=== PATIENT | male | born 2000 | race Caucasian/White ===

== ENCOUNTER 2020-02-28 20:26 | Emergency (ER) | payer BC ==
[2020-02-28] MEDS: Sodium Chloride 0.9% 10 ML Syringe FLUSH PRN ×3 (20:34→21:50)
[2020-02-28] MEDS ORDERED: Aspirin 81 MG Tab.Chew PO STA (20:45)
[2020-02-28] MEDS: Nitroglycerin 0.4 MG Tab.SL SL PRN ×2 (20:47→20:51)
[2020-02-28] MEDS ORDERED: fentaNYL 100 MCG/2 ML SDV IVPUSH STA (21:02)
--- NOTE | 2020-02-28 21:18 | EDM.PDOC ---
ED HPI GENERAL MEDICAL PROBLEM - General Chief Complaint: Chest Pain Stated Complaint: PALPITATIONS Time Seen by Provider: 02/28/20 20:35 Source of Information: Reports: Patient History Limitations: Reports: No Limitations - History of Present Illness INITIAL COMMENTS - FREE TEXT/NARRATIVE: Patient presented to the ED because of palpitations and chest pain which started at about 1930 tonight. It's pounding, sharp, with associated dyspnea. Denies any nausea or vomiting. He had an ablation done several months ago in [facility] due to an atrial flutter. 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 Anterior chest Pain Score (Numeric/FACES): 9 - Related Data Allergies Allergy/AdvReac Type Severity Reaction Status Date / Time No Known Allergies Allergy Verified 02/28/20 20:43 Home Meds: Home Meds Citalopram [Citalopram HBr] 10 mg PO DAILY 02/28/20 [History] Naproxen 500 mg PO BID #15 tablet 02/28/20 [Rx] Past Medical History Cardiovascular History: Reports: Afib, Arrhythmia Respiratory History: Reports: Asthma, Other (See Below) Other Respiratory History: bronchiectasis Gastrointestinal History: Reports: Other (See Below) Other Gastrointestinal History: gluten intolerance Musculoskeletal History: Reports: Fracture Other Musculoskeletal History: hx fx R wrist, Neurological History: Reports: Concussion, Migraines, Vertigo Psychiatric History: Reports: Anxiety, Depression, Suicidal Ideation - Infectious Disease History Infectious Disease History: Reports: Chicken Pox - Past Surgical History HEENT Surgical History: Reports: Oral Surgery Cardiovascular Surgical History: Reports: Cardiac Ablation Respiratory Surgical History: Reports: Other (See Below) Other Respiratory Surgeries/Procedures: lung washing GI Surgical History: Reports: Appendectomy Musculoskeletal Surgical History: Reports: None Social & Family History - Family History Family Medical History: No Pertinent Family History - Tobacco Use Tobacco Use Status *Q: Former Tobacco User Years of Tobacco use: 3 Used Tobacco, but Quit: Yes Month/Year Tobacco Last Used: Dec 2018 - Caffeine Use Caffeine Use: Reports: Soda - Alcohol Use Days Per Week of Alcohol Use: 2 Number of Drinks Per Day: 4 Total Drinks Per Week: 8 - Recreational Drug Use Recreational Drug Use: No ED ROS GENERAL - Review of Systems Review Of Systems: See Below Constitutional: Reports: No Symptoms HEENT: Reports: No Symptoms Respiratory: Reports: Shortness of Breath Cardiovascular: Reports: Chest Pain, Palpitations Endocrine: Reports: No Symptoms GI/Abdominal: Reports: No Symptoms : Reports: No Symptoms Musculoskeletal: Reports: No Symptoms Skin: Reports: No Symptoms Neurological: Reports: No Symptoms Psychiatric: Reports: No Symptoms Hematologic/Lymphatic: Reports: No Symptoms ED EXAM, GENERAL - Physical Exam Exam: See Below Exam Limited By: No Limitations General Appearance: Alert, No Apparent Distress Nose: Normal Inspection, Normal Mucosa, No Blood Throat/Mouth: Normal Inspection, Normal Lips, Normal Teeth Head: Atraumatic, Normocephalic, Facial Swelling Neck: Normal Inspection, Supple, Non-Tender, Full Range of Motion Respiratory/Chest: No Respiratory Distress, Lungs Clear, Normal Breath Sounds Cardiovascular: Normal Peripheral Pulses, Regular Rate, Rhythm, No Edema, No Gallop, No JVD, No Murmur, No Rub GI/Abdominal: Normal Bowel Sounds, Soft, Non-Tender, No Organomegaly, No Distention, No Abnormal Bruit, No Mass Back Exam: Normal Inspection, Full Range of Motion Extremities: Normal Inspection, Normal Range of Motion, Non-Tender Neurological: Alert, Oriented, CN II-XII Intact, Normal Cognition, Normal Gait Psychiatric: Normal Affect, Normal Mood Course - Vital Signs Text/Narrative:: Labs/EKG/CXR was discussed with patient and his mother EKG-NSR Trop-neg ASA 324 mg PO x1 NTG 0.4 mg x 2 doses Fentanyl 50 mcg IV x1 Ativan [address] Ramirez at [facility] was consulted and doesn't think it's AMI or ACS. His EKG was normal Last Recorded V/S: Last Vital Signs Temp 36.6 C 02/28/20 20:26 Pulse 71 02/28/20 20:26 Resp 18 02/28/20 20:26 BP 132/78 02/28/20 20:51 Pulse Ox 100 02/28/20 20:26 - Orders/Labs/Meds Orders: Active Orders 24 hr Category Date Time Status EKG Documentation Completion [RC] ASDIRECTED Care 02/28/20 20:43 Active Chest 1V Frontal [CR] Stat Exams 02/28/20 20:43 Taken Nitroglycerin [Nitrostat] Med 02/28/20 20:44 Active 0.4 mg SL Q5M PRN Sodium Chloride 0.9% [Saline Flush] Med 02/28/20 20:43 Active 10 ml FLUSH ASDIRECTED PRN Saline Lock Insert [OM.PC] Routine Oth 02/28/20 20:43 Ordered EKG 12 Lead [EK] Routine Ther 02/28/20 20:43 Ordered Medication Orders Nitroglycerin (Nitrostat) 0.4 mg SL Q5M PRN PRN Reason: Chest Pain Last Admin: 02/28/20 20:51 Dose: 0.4 mg Documented by: Admin: 02/28/20 20:47 Dose: 0.4 mg Documented by: HAYDEE Sodium Chloride (Saline Flush) 10 ml FLUSH ASDIRECTED PRN PRN Reason: Keep Vein Open Last Admin: 02/28/20 21:50 Dose: 10 ml Documented by: Admin: 02/28/20 21:16 Dose: 10 ml Documented by: Admin: 02/28/20 20:34 Dose: 10 ml Documented by: HAYDEE Labs: Laboratory Tests 02/28/20 02/28/20 02/28/20 Range/Units 20:40 20:40 20:40 WBC 5.6 (3.2-10.1) x10-3/uL RBC 5.50 (3.90-5.90) x10(6)uL Hgb 16.9 (12.9-17.7) g/dL Hct 50.1 (38.3-50.1) % MCV 91.1 (80.8-98.7) fL MCH 30.8 (27.0-33.3) pg MCHC 33.8 (28.7-35.3) g/dL RDW 12.7 (12.4-15.0) % Plt Count 260 (117-477) x10(3)uL MPV 9.1 (6.7-11.0) fL Neut % (Auto) 47.0 (40.3-71.8) % Lymph % (Auto) 37.5 (15.8-45.3) % Metcalfe % (Auto) 11.2 (5.5-15.2) % Eos % (Auto) 3.8 (0.1-6.8) % Baso % (Auto) 0.5 (0.3-3.8) % Neut # (Auto) 2.6 (1.7-6.9) x10-3/uL Lymph # (Auto) 2.1 (0.5-4.5) x10-3/uL Metcalfe # (Auto) 0.6 (0.0-1.2) x10-3/uL Eos # (Auto) 0.2 (0.0-0.6) x10-3/uL Baso # (Auto) 0.0 (0.0-0.3) x10-3/uL PT 10.9 (9.0-11.1) sec INR 1.01 (1.00-1.24) APTT 25.6 (24.4-33.2) SECONDS Sodium 138 (135-145) mmol/L Potassium 4.5 (3.5-5.3) mmol/L Chloride 102 (100-110) mmol/L Carbon Dioxide 30 (21-32) mmol/L BUN 13 (7-18) mg/dL Creatinine 1.3 (0.70-1.30) mg/dL Est Cr Clr Drug Dosing 95.73 mL/min Estimated GFR (MDRD) > 60 (>60) BUN/Creatinine Ratio 10.0 (9-20) Glucose 97 (80-116) mg/dL Calcium 9.4 (8.6-10.2) mg/dL Total Bilirubin 0.7 (0.1-1.3) mg/dL AST 16 (5-25) IU/L ALT 32 (12-36) U/L Alkaline Phosphatase 71 (56-112) IU/L Troponin I (4.0-60.3) pg/mL Total Protein 7.8 (6.0-8.0) g/dL Albumin 4.7 (3.5-5.2) g/dL Globulin 3.1 g/dL Albumin/Globulin Ratio 1.5 02/28/20 Range/Units 20:40 WBC (3.2-10.1) x10-3/uL RBC (3.90-5.90) x10(6)uL Hgb (12.9-17.7) g/dL Hct (38.3-50.1) % MCV (80.8-98.7) fL MCH (27.0-33.3) pg MCHC (28.7-35.3) g/dL RDW (12.4-15.0) % Plt Count (117-477) x10(3)uL MPV (6.7-11.0) fL Neut % (Auto) (40.3-71.8) % Lymph % (Auto) (15.8-45.3) % Metcalfe % (Auto) (5.5-15.2) % Eos % (Auto) (0.1-6.8) % Baso % (Auto) (0.3-3.8) % Neut # (Auto) (1.7-6.9) x10-3/uL Lymph # (Auto) (0.5-4.5) x10-3/uL Metcalfe # (Auto) (0.0-1.2) x10-3/uL Eos # (Auto) (0.0-0.6) x10-3/uL Baso # (Auto) (0.0-0.3) x10-3/uL PT (9.0-11.1) sec INR (1.00-1.24) APTT (24.4-33.2) SECONDS Sodium (135-145) mmol/L Potassium (3.5-5.3) mmol/L Chloride (100-110) mmol/L Carbon Dioxide (21-32) mmol/L BUN (7-18) mg/dL Creatinine (0.70-1.30) mg/dL Est Cr Clr Drug Dosing mL/min Estimated GFR (MDRD) (>60) BUN/Creatinine Ratio (9-20) Glucose (80-116) mg/dL Calcium (8.6-10.2) mg/dL Total Bilirubin (0.1-1.3) mg/dL AST (5-25) IU/L ALT (12-36) U/L Alkaline Phosphatase (56-112) IU/L Troponin I 8.8 (4.0-60.3) pg/mL Total Protein (6.0-8.0) g/dL Albumin (3.5-5.2) g/dL Globulin g/dL Albumin/Globulin Ratio Meds: Medications Generic Name Dose Route Start Last Admin Trade Name Freq PRN Reason Stop Dose Admin Nitroglycerin 0.4 mg 02/28/20 20:44 02/28/20 20:51 Nitrostat SL 0.4 mg Q5M PRN Administration Chest Pain Sodium Chloride 10 ml 02/28/20 20:43 02/28/20 21:50 Saline Flush FLUSH 10 ml ASDIRECTED PRN Administration Keep Vein Open Discontinued Medications Generic Name Dose Route Start Last Admin Trade Name Quinten PRN Reason Stop Dose Admin Aspirin 324 mg 02/28/20 20:45 02/28/20 20:51 Aspirin PO 02/28/20 20:46 324 mg NOW STA Administration Fentanyl 50 mcg 02/28/20 21:02 02/28/20 21:08 Sublimaze IVPUSH 02/28/20 21:03 50 mcg NOW STA Administration Lorazepam 1 mg 02/28/20 21:37 02/28/20 21:47 Ativan IVPUSH 02/28/20 21:38 1 mg NOW STA Administration Departure - Departure Time of Disposition: 21:45 Disposition: Home, Self-Care 01 Condition: Good Clinical Impression: Atypical chest pain, Anxiety, Depression Prescriptions: Naproxen 500 mg PO BID #15 tablet Instructions: Generalized Anxiety Disorder, Adult, Nonspecific Chest Pain, Adult Referrals: PCP,None [Primary Care Provider] - Forms: ED Department Discharge Additional Instructions: Please read discharge instructions on chest wall pain, anxiety, and depreseeion Take Naproxen 500 mg twice daily for 7 days(chest wall pain) Increase the dose of your citalopram from 10 mg to 20 mg daily Make an appointment to see a psychiatrist in [facility] in 1-2 weeks You need to find a doctor in [facility] so they can adress your other medical issues and we don't do follow up in the ED. Sepsis Event Note (ED) - Evaluation Sepsis Screening Result: No Definite Risk - Focused Exam Vital Signs: Vital Signs Temp Pulse Resp BP BP Pulse Ox 02/28/20 20:51 132/78 02/28/20 20:47 119/53 L 02/28/20 20:26 36.6 C 71 18 132/78 100 - My Orders Last 24 Hours: My Active Orders 02/28/20 20:43 EKG Documentation Completion [RC] ASDIRECTED Chest 1V Frontal [CR] Stat Sodium Chloride 0.9% [Saline Flush] 10 ml FLUSH ASDIRECTED PRN Saline Lock Insert [OM.PC] Routine EKG 12 Lead [EK] Routine 02/28/20 20:44 Nitroglycerin [Nitrostat] 0.4 mg SL Q5M PRN - Assessment/Plan Last 24 Hours: My Active Orders 02/28/20 20:43 EKG Documentation Completion [RC] ASDIRECTED Chest 1V Frontal [CR] Stat Sodium Chloride 0.9% [Saline Flush] 10 ml FLUSH ASDIRECTED PRN Saline Lock Insert [OM.PC] Routine EKG 12 Lead [EK] Routine 02/28/20 20:44 Nitroglycerin [Nitrostat] 0.4 mg SL Q5M PRN
[2020-02-28] MEDS ORDERED: LORazepam 2 MG/ML SDV IVPUSH STA (21:37)
--- NOTE | 2020-02-29 10:26 | CR ---
INDICATION: Chest pain. CHEST ONE VIEW: AP upright portable view of the chest 02/28/20 - no comparison. The heart is normal in size and shape. Mediastinum was unremarkable. Overlying EKG leads are noted. An active infiltrate or effusion was not identified. Slightly prominent markings in the lower lung kumari are questionable etiology, possibly related to mild fibrosis or edema or possibly infection. IMPRESSION: No definite acute process - somewhat heavy markings in the lower lung kumari, etiology indeterminate. MTDD
== END 2020-02-28 22:23 | disposition home or self-care (01) ==
LOC: FB.ED 20:26
DX: F41.9 Anxiety disorder, unspecified (principal); F32.9 Major depressive disorder, single episode, unspecified; I48.91 Unspecified atrial fibrillation; J45.909 Unspecified asthma, uncomplicated; Z87.891 Personal history of nicotine dependence; Z79.899 Other long term (current) drug therapy
CPT/HCPCS: 36415; 71045; 80053; 84484; 85025; 85610; 85730; 93005; 96374; 96375; 99285-25; A9270-GY; J2060; J3010